=== PATIENT | female | born 1980 | race Caucasian/White ===

== ENCOUNTER → 2020-09-18 | Outpatient (CLI) | payer BC ==
--- NOTE | 2020-09-22 11:00 | MM ---
Reason for exam: screening (asymptomatic). Last mammogram was performed 4 years and 10 months ago. History: Family history of breast cancer in mother at age 43. Physical Findings: A clinical breast exam by your physician is recommended on an annual basis and results should be correlated with mammographic findings. MG 3D Screening Mammo W/Cad Bilateral CC and MLO view(s) were taken. Prior study comparison: November 23, 2015, mammogram, performed at [facility]. November 16, 2015, mammogram, performed at [facility]. The breast tissue is heterogeneously dense. This may lower the sensitivity of mammography. Two anterior nodules superior and upper outer left breast. Left density lateral middle depth on CC. Two densities central and lateral anterior depth right breast on CC. Right calcification increasing upper outer quadrant anterior position. ASSESSMENT: Incomplete: need additional imaging evaluation, BI-RAD 0 RECOMMENDATION: Special view mammogram of both breasts. If lesion persists on supplemental views, image directed ultrasound is recommended. [facility] will attempt to contact patient to return for supplemental views and ultrasound if indicated.
== END | disposition home or self-care (01) ==
LOC: RADMAMWWP 13:48
PROVIDERS: ATTEND Obstetrics & Gynecology
DX: Z12.31 Encounter for screening mammogram for malignant neoplasm of breast (principal); Z80.3 Family history of malignant neoplasm of breast
CPT/HCPCS: 77063; 77067

== ENCOUNTER → 2020-09-30 | Outpatient (CLI) | payer BC ==
--- NOTE | 2020-10-02 13:27 | MM ---
Reason for exam: additional evaluation requested from abnormal screening. Last mammogram was performed less than 1 month ago. History: Family history of breast cancer in mother at age 43. Took hormonal contraceptives for 11 years beginning at age 17. Physical Findings: Nurse did not find any significant physical abnormalities on exam. MG 3D Work Up W/Cad ZULEIMA Bilateral spot compression CC, spot compression MLO, and LM view(s) were taken. Prior study comparison: September 18, 2020, bilateral MG 3d screening mammo w/cad. November 23, 2015, mammogram, performed at [facility]. At least 3 nodule measuring 5-6mm left upper outer quadrant at 2-3 o'clock 2-6.5cm from nipple. Left 5.5mm nodule central breast 6.5cm from nipple. Left 6mm nodule at 10 o'clock 5cm from nipple. Right calcifications lateral breast at 9 o'clock, 4cm from nipple. Group of calcifications mildly suspicious, stereotactic biopsy recommended. Right 1.8cm two adjacent nodules at 9-10 o'clock, 4cm from nipple. These results were verbally communicated with the patient and result sheet given to the patient on 09/30/20. ASSESSMENT: Incomplete: need additional imaging evaluation, BI-RAD 0 RECOMMENDATION: Ultrasound of both breasts.
--- NOTE | 2020-10-02 14:38 | USB ---
Reason for exam: additional evaluation requested from abnormal screening. History: Family history of breast cancer in mother at age 43. Took hormonal contraceptives for 11 years beginning at age 17. US Breast Workup Limited ZULEIMA Right limited breast ultrasound including focal area of concern, retroareolar and axilla demonstrates a 1.0 x 1.3 x 0.8cm cystic lesion with septation at 10 o'clock and a 0.6 x 0.5 x 0.6cm cystic lesion with septation at 10 o'clock. Left limited breast ultrasound including focal area of concern, retroareolar and axilla demonstrates a 0.6 x 0.7 x 0.2cm cystic lesion at 4 o'clock, a 0.3 x 0.4 x 0.3cm cystic lesion at 4 o'clock and a 0.4 x 0.3 x 0.4cm irregular, solid, hypoechoic lesion at 10 o'clock, 6cm from nipple, suspicious, ultrasound biopsy of the left breast. These results were verbally communicated with the patient and result sheet given to the patient on 09/30/20. ASSESSMENT: Suspicious, BI-RAD 4 RECOMMENDATION: Ultrasound core biopsy of the left breast. Stereotactic core biopsy of the right breast. Called Dr. Larose's office with mammographic findings and has scheduled an appointment for the patient for 10/08/20 at 11:[address] Garcia. Stereotactic core biopsy scheduled for 10/16/20 at 7:00. Ultrasound core biopsy scheduled for 10/23/20 at 10:30. PRELIMINARY REPORT CALLED AND FAXED TO DR. GARCIA ON 10/02/20.
== END | disposition home or self-care (01) ==
LOC: RADMAMWWP 13:45
PROVIDERS: ATTEND Obstetrics & Gynecology
DX: N63.21 Unspecified lump in the left breast, upper outer quadrant (principal); R92.1 Mammographic calcification found on diagnostic imaging of breast; N60.01 Solitary cyst of right breast; N60.02 Solitary cyst of left breast; Z80.3 Family history of malignant neoplasm of breast
CPT/HCPCS: 77062; 77066